=== PATIENT | male | born 1950 | race Caucasian/White ===

== ENCOUNTER 2022-08-14 13:23 | Emergency (ER) | payer MEDICARE ==
--- NOTE | 2022-08-14 13:41 | ED ---
General Adult HPI - General Stated complaint: sore throat, abscess Time Seen by Provider: 08/14/22 13:23 Source: patient, RN notes reviewed, old records reviewed - History of Present Illness Initial comments: This is a 72-year-old male who presents emergency Department with a four-day history of a sore throat. Patient states she fine went to the emergency department today because he was having difficulty swallowing but having no difficulty breathing. Patient states they did a CAT scan showed possible abscesses in some swelling of the airway even though he was not experiencing any airway problems. The ER doc felt he needed to be transferred evaluated at the facility. Patient did receive Unasyn and Decadron prior to transfer. Patient states he feels considerably better at this point in time he states that he can swallow much better and is much less painful. Patient still does not have any difficulty breathing. Patient denies any fever chills. Patient states he believes he is good enough to go home at this point in time. - Related Data Home Medications Medication Instructions Recorded Confirmed Multivitamins, Thera [Multivitamin 1 tab PO DAILY 08/14/22 08/14/22 (formulary)] lisinopriL [Zestril] 10 mg PO DAILY 08/14/22 08/14/22 Previous Rx's Medication Instructions Recorded Amoxic-Pot Clav 875-125Mg 1 tab PO BID 10 Days #20 tab 08/14/22 [Augmentin 875-125] predniSONE [Deltasone] 40 mg PO DAILY #12 tab 08/14/22 Allergies Allergy/AdvReac Type Severity Reaction Status Date / Time No Known Allergies Allergy Verified 08/14/22 15:29 Review of Systems ROS Statement: Those systems with pertinent positive or pertinent negative responses have been documented in the HPI. ROS Other: All systems not noted in ROS Statement are negative. General Exam - General Exam Comments Initial Comments: GENERAL: Patient is well-developed and well-nourished. Patient is nontoxic and well- hydrated and is in no acute distress. ENT: Neck is soft and supple. No significant lymphadenopathy is noted. Oropharynx is clear. The right peritonsillar abscess is mildly swollen and not erythematous there is no exudate and the airway is patent Moist mucous membranes. Neck has full range of motion without eliciting any pain. EYES: The sclera were anicteric and conjunctiva were pink and moist. Extraocular movements were intact and pupils were equal round and reactive to light. Eyelids were unremarkable. PULMONARY: Unlabored respirations. Good breath sounds bilaterally. No audible rales rhonchi or wheezing was noted. CARDIOVASCULAR: There is a regular rate and rhythm without any murmurs gallops or rubs. ABDOMEN: Soft and nontender with normal bowel sounds. SKIN: Skin is clear with no lesions or rashes and otherwise unremarkable. NEUROLOGIC: Patient is alert and oriented x3. Cranial nerves II through XII are grossly intact. Motor and sensory are also intact. Normal speech, volume and content. Symmetrical smile. MUSCULOSKELETAL: Normal extremities with adequate strength and full range of motion. LYMPHATICS: No significant lymphadenopathy is noted PSYCHIATRIC: Normal psychiatric evaluation. Course Vital Signs 08/14/22 08/14/22 13:47 15:26 Temperature 98.7 F Pulse Rate 91 92 Respiratory 18 18 Rate Blood Pressure 145/88 148/94 O2 Sat by Pulse 94 L 94 L Oximetry Medical Decision Making - Medical Decision Making A repeat CT was done because the quantitative for CT was not what the radiologist wanted. CT did show some swelling but no abscess formation. I spoke with ENT ENT wanted the patient to be sent home on antibiotic steroids and follow-up with him within the week. Disposition Clinical Impression: Cellulitis of pharynx Disposition: HOME SELF-CARE Condition: Good Prescriptions: Amoxic-Pot Clav 875-125Mg [Augmentin 875-125] 1 tab PO BID 10 Days #20 tab predniSONE [Deltasone] 40 mg PO DAILY #12 tab Is patient prescribed a controlled substance at d/c from ED?: No Referrals: Catalina Monteiro MD [Primary Care Provider] - 1-2 days Time of Disposition: 15:42
[2022-08-14 13:54] VITALS: RESP 18
--- NOTE | 2022-08-14 14:44 | CT ---
EXAMINATION TYPE: CT soft tissue neck wo con DATE OF EXAM: 08/14/2022 COMPARISON: 08/14/[address] exam. HISTORY: Sore throat CT DLP: 379.9 mGycm CONTRAST: Patient injected with 02 mL of Isovue 300. TECHNIQUE: Axial images at 3 mm thick sections. Reconstructed images in the coronal plane and sagitt al plane are reviewed. FINDINGS: Limited CT sections are obtained the lung apices. The lung apices appear clear. CT neck: There is fullness within the adenoid region. Torus tubarius is identified. Fossa Rosenmuller appears somewhat shallow. Cloth Hauler spaces are normal. Paranasal sinuses and mastoid air cells wit hin the field of view are clear. Tonsillar pillars appear normal. Parotid glands appear symmetrical. Parapharyngeal spaces appear unre markable. There are scattered small lymph nodes present bilaterally. The submandibular glands appear normal. Epiglottis appears normal. Aryepiglottic folds are normal. At the level of the hyoid bone there is fullness and effacement of the hypopharynx on the left. This is estimated to measure 3.1 x 2.2 cm in size. There is some airway narrowing through this region. Voc al cords appear closed time of this exam. Subglottic airway appears normal. The esophagus posterior t o the trachea appears unremarkable. Some minimal air is present within the esophagus. This area withi n the left posterior lateral hypopharynx extends above the false vocal cord level along the left side of the hypopharynx. This appears to cross the midline. Differential diagnosis should include infecti on and neoplasm. No suspicious underlying hypodensity to suggest abscess formation based on these michelle ges is evident. Degenerative disc changes and spondylosis within the cervical spine is evident. IMPRESSIONS: 1. Soft tissue fullness which may have some effacement of the left lateral aspect of the hypopharynx. This is below the epiglottis and above the false vocal cords and effaces the left aspect of the hypo pharynx. Infection without definite underlying abscess formation at this time and neoplasm are primar y within the differential.
[2022-08-14] MEDS ORDERED: FAMOTIDINE 20 MG TAB PO STA (15:50)
[2022-08-14 17:26] VITALS: BP 147/91; PULSE 91; TEMP 98.6
== END 2022-08-14 16:14 | disposition home or self-care (01) ==
LOC: EC 13:23
DX: J39.1 Other abscess of pharynx (principal)
CPT/HCPCS: 70490; 99284